=== PATIENT | female | born 1950 | race Caucasian/White ===

== ENCOUNTER → 2025-06-04 06:30 | Outpatient (REF) | payer MEDICARE, MEDICAID, SELFPAY ==
[2025-06-04 08:30] LABS: Hematocrit 38.0 % (37-47); Hemoglobin 12.4 g/dL (12.0-15.0); Mean Corp Hgb Conc 32.6 g/dL (32-36); Mean Corpuscular Volume 83.5 fL (81-99); Mean Platelet Vol. 10.7 fl (6.2-12.0); Platelet Count 183 K/mm3 (150-450); RBC Distribution Width CV 14.5 % (11.6-14.6); RBC Distribution Width SD 44.1 fl (35.1-43.9); Red Blood Count 4.55 M/mm3 (4.2-5.4); White Blood Count 6.2 K/mm3 (4.4-11.0)
[2025-06-04 09:05] LABS: AST(SGOT) 19 U/L (<=31); Alanine Aminotransfer ALT/SGPT 11 U/L (<=34); Albumin, Serum 4.1 g/dL (3.4-4.8); Alkaline Phosphatase 45 U/L (35-104); Anion Gap 11 (5-15); BUN 23 mg/dL (4-19); BUN/Creat Ratio 27.1 RATIO (10-20); Calcium,Total 9.6 mg/dL (7.6-11.0); Carbon Dioxide 25.4 mmol/L (21.0-32.0); Chloride 105 mmol/L (98-108); Globulin 2.5 g/dL (2.2-4.2); Glucose 102 mg/dL (70-99); Potassium 4.1 mmol/L (3.3-5.1); Vitamin B12 268 pg/mL (180-914)
== END ==
LOC: OLS.SANC 06:30
PROVIDERS: Referring Provider Internal Medicine; Visit Provider Internal Medicine
DX: E11.9 Type 2 diabetes mellitus without complications (principal); I10 Essential (primary) hypertension
CPT/HCPCS: 36415; 80053; 82607; 83036; 84443; 85027